=== PATIENT | female | born 1940 | race Caucasian/White ===

== ENCOUNTER 2016-07-02 01:10 | Inpatient (IN) | payer OTHER ==
[~2016-07-02] VITALS: Ht 165.1 cm; Wt 108.4 kg
[~2016-07-02 01:10] MED LIST: CYMBALTA30 M1 PO; MUCINEX600 M1 PO; SYMBICORT 16010.2 GM INH; SYNTHROID200 MCG PO; SYNTHROID25 MCG PO; XARELTO20 M2 PO
--- NOTE | 2016-07-02 14:14 | Admission Core Measures ---
Admission Meds I reviewed the following Meds: Current Medications Sig/Rigo Start time Last Medication Dose Stop Time Status Admin Acetaminophen 975 MG ONCE 07/02 NR (Tylenol) 07/02 2358 Budesonide/ 2 PUF BID 07/02 2199 UNVr Formoterol Fumarate (Symbicort) Cefazolin Sodium 2,000 MG ONCE 07/02 NR (Kefzol-Ancef Inj) 07/02 2358 Duloxetine HCl 30 MG DAILY 07/03 1000 UNVr (Cymbalta) Levothyroxine Sodium 0.025 MG DAILY 07/03 1000 UNVr (Synthroid) Levothyroxine Sodium 0.2 MG DAILY 07/03 1000 UNVr (Synthroid) Oxycodone HCl 10 MG ONCE 07/02 NR (Roxicodone) 07/02 2358 Acute Coronary Syndrome Inclusion Criteria ACS Diagnosis No Inpatient Core Measures LDL Reminder: If No, please order W/I first 24hr of stay Congestive Heart Failure Inclusion Criteria CHF Diagnosis No Cerebrovascular accident Inclusion Criteria CVA/TIA Diagnosis No Inpatient Core Measures Bedside Swallow Eval Reminder: If BSE failed, place ST order Antithrombotic Reminder: Order Antithrombotic Medication by end of day 2 Antithrombotic Reminder: Document Reason Antithrombotic Not ordered by end of day 2 AFIB/Flutter Reminder: If Present, add to problem list AFIB/Flutter Reminder: Order Anticoag Medication for pts with AFIB/Flutter Atherosclerosis Reminder: If Present, add to problem list LDL Reminder: If No, please order W/I first 24hr of stay PT Order Reminder: If No, please order Venous thromboembolism Inpatient Core Measures VTE Risk Factors: Age > 40, Surgery VTE Prophylaxis Ordered Inpt [facility] & Pharm No [facility] VTE prophylaxis d/t No contraindications No VTE Pharm Prophylaxis d/t No contraindications Inclusion Criteria - Per Current guidelines, there needs to be overlap - treatment for the first 5 days of Warfarin therapy. - Parenteral Anticoagulation (IV or SC) needs to be - given along with Warfarin therapy. VTE Diagnosis No VTE Type NONE VTE Confirmed by (Test) NONE Problem List As ranked by this Provider includes Assessment & Plan 1. Status post total hip replacement, left HOME MEDS Home Med List Budesonide/Formoterol Fumarate (Symbicort 160-4.5 Mcg Inhaler) (Unknown Strength ) HFA.AER.AD 2 PUFF INH BID PRN COPD (Reported) Duloxetine Hydrochloride (Cymbalta) 30 MG CAPSULE.DR 1 CAP PO DAILY NEUROPATHY (Reported) Levothyroxine Sodium (Synthroid) 200 MCG TABLET 1 TAB PO DAILY THYROID ( Reported) Levothyroxine Sodium (Synthroid) 25 MCG TABLET 1 TAB PO DAILY THYROID ( Reported) Rivaroxaban (Xarelto) 20 MG TABLET 1 TAB PO DAILY PE (Reported)
[2016-07-02] MEDS ORDERED: MS CONTIN15 M2 PO (14:17)
[2016-07-02] MEDS ORDERED: DILAUDID2 M1 PO (14:17)
[2016-07-02] MEDS ORDERED: MIRALAX17 G1 PO (14:17)
[2016-07-02] MEDS ORDERED: COLACE100 M1 PO (14:17)
--- NOTE | 2016-07-02 14:22 | Patient Discharge Instructions ---
Discharge Instructions General Discharge Information You were seen/treated for: joint pain You had these procedures: total hip replacement Watch for these problems: See pre printed sheet Other wound care: See pre printed sheet Diet Recommended Diet: Regular Activity Activity Self Limited: Yes Acute Coronary Syndrome Inclusion Criteria At DC or during hospital stay patient has or had the following: ACS DIAGNOSIS No Discharge Core Measures Meds if any: Prescribed or Continued at Discharge Meds if any: NOT Prescribed or Continued at Discharge Congestive Heart Failure Inclusion Criteria At DC or during hospital stay patient has or had the following: CHF DIAGNOSIS No Discharge Core Measures Meds if any: Prescribed or Continued at Discharge Meds if any: NOT Prescribed or Continued at Discharge Cerebrovascular accident Inclusion Criteria At DC or during hospital stay patient has or had the following: CVA/TIA Diagnosis No Discharge Core Measures Meds if any: Prescribed or Continued at Discharge Meds if any: NOT Prescribed or Continued at Discharge Venous thromboembolism Inclusion Criteria VTE Diagnosis No VTE Type NONE VTE Confirmed by (Test) NONE Discharge Core Measures - Per Current guidelines, there needs to be overlap - treatment for the first 5 days of Warfarin therapy. - If discharged on Warfarin prior to 5 days of - overlap therapy, the patient will need to be - assessed for post discharge needs including - *Post discharge parental anticoagulation - *Warfarin and/or parental anticoagulation education - *Follow up date to check INR post discharge At least 5 days overlap therapy as Inpatient No Meds if any: Prescribed or Continued at Discharge Note: Overlap Therapy is Warfarin and Anticoagulant Meds if any: NOT Prescribed or Continued at Discharge
--- NOTE | 2016-07-02 14:26 | Surg Short-stay <48hrs Dis Sum ---
Visit Information Visit Dates Admission Date: 07/02/16 Discharge Date: 07/04/16 Surgical Short Stay DC Summary Admission Diagnosis: OA, DJD Final Diagnosis: same, s/p L DEMETRIUS Procedure(s): L DEMETRIUS - see op report Summary/Significant Findings: Pt underwent L DEMETRIUS by DR Gee on 07/02. She tolerated the procedure and was brought to the PACU in stable condition. Over the course of her stay, she was able to void without difficulty, she was tolerating a regular diet, her pain was well controlled on oral pain medication and she was seen by PT and cleared for discharge home with services. Condition at Discharge: good Discharge Disposition: home health services Discharge instructions provided to patient/family: Yes Post discharge follow-up plan: Scheduled appoitnment with DR Gee - Pt is to call if needed to be seen earlier.
--- NOTE | 2016-07-02 16:39 | Operative Report ---
Operative/Inv Procedure Report Surgery Date: 07/02/16 Name of Procedure: Left total hip replacement Pre-Operative Diagnosis: Primary left hip DJD Post-Operative Diagnosis: Same Estimated Blood Loss: 350 Surgeon/Propulsion Generator Repairer: DEQUAN HATHAWAY,BETH Feldman Anesthesia: block Operative/Procedure Note Note: Description of Procedure: The patient was taken to the operating room and positively identified. After induction of spinal anesthesia and administration of appropriate pre-operative antibiotics, the patient was positioned supine on the operating room table and all bony prominences were well padded. After performing a surgical timeout, the left extremity was prepped and draped in the usual sterile fashion. A direct anterior approach was made to the left hip. The incision was carried sharply through superficial soft tissues to the level of the fascia. Meticulous hemostasis was maintained with Bovie electocautery. The fascia over the tensor fascia alva muscle was opened sharply and the interval between the TFL and the sartorius was entered bluntly taking care to stay lateral to the lateral femoral cutaneous nerve. Retractors were placed around the femoral neck and the pericapsular fat was identified. The ascending branches of the lateral femoral circumflex vessels were identified and carefully coagulated. The pericapsular fat and anterior capsule were then resected. A napkin ring osteotomy was performed and the femoral head was removed without difficulty. Attention was then turned to the acetabulum. After appropriate placement of retractors, the acetabulum was exposed. Soft tissue was cleaned from the acetabular margin and notch. Overhanging osteophytes were removed and the teardrop was exposed. The acetabulum was then sequentially reamed to accept a 50 mm Brandi Tritanium hemispherical solid back shell. This was impacted into place in the appropriate position and fitted with a 32 mm Trident X3 zero degree polyethylene insert. Attention was then turned to the femur. After performing the appropriate ligament releases, the proximal femur was exposed. It was then sequentially broached to accept a size 3 Brandi accolade 2 stem. This was trialed for leg length and stability. The trial component was removed and the final component was impacted into place. The trunnion was carefully cleaned and fit with a 32 mm, +4 Biolox delta ceramic femoral head. The hip was reduced and put through a full range of motion and found to be stable. The articular space was then irrigated with sterile saline. The periarticular soft tissues were infilitrated with Marcaine. The fascial layer was closed with interrupted #1 vicryl suture and the skin was re-approximated with interrupted 2 -0 vicryl. The skin was closed with a running 3-0 V-Lock suture. Steri-strips and a sterile dressing were applied. The patient was awakened and taken to the recovery room in satisfactory condition.
--- NOTE | 2016-07-02 18:34 | RADIOLOGY REPORT ---
EXAMINATION: XR HIP, LEFT CLINICAL INFORMATION: Status post left total hip replacement. COMPARISON: None TECHNIQUE: AP and crosstable lateral views of the left hip. FINDINGS: Prosthetic components of the left total hip arthroplasty are appropriately aligned. No periprosthetic fracture. Gas from recent surgery is present in the surrounding soft tissues. A drainage catheter overlies the lateral aspect of the left hip joint. IMPRESSION: Normal postoperative appearance of the left total hip prosthesis.
[2016-07-02 19:41] VITALS: BP 110/64
--- NOTE | 2016-07-02 20:00 | NUR ---
PT UPTO FLOOR AT 191. PT A/O X3. PAIN MILD AT THAT TIME. VSS. LCTA. ABD SOFT. PT WITH HEMOVAC TO L HIP W BLOODY OUTPUT. L HIP DSD C/D/I. NO DRAINAGE TO DRESSING. + CMS. CALL DYE USE INTRUCTED. WILL MONITOR
[2016-07-02 21:00] VITALS: BP 92/60
--- NOTE | 2016-07-02 22:09 | PN- Orthopedic ---
Subjective Subjective: s/p left ira denies cp, sob, no n+v has been ambulating sat on the toilet but could not urinate Objective Vital Signs and I&Os Vital Signs Date Time Temp Pulse Resp B/P Pulse O2 O2 Flow FiO2 Ox Delivery Rate 07/02 2099 97.8 68 20 92/60 94 Room Air 07/02 1940 97.4 63 16 110/64 94 Room Air Physical Exam: cv: rrr lungs: clear abd: +bs ext: drsg dry distal cms intact hemovac in plasce Assessment/Plan Assessment/Plan ortho stable plan straight cath prn start xarelto tomorrow for dvt prophylaxis for now mechanical only Core Measures/Miscellaneous Venous Thromboembolism VTE Risk Factors: Age > 40, Obesity, Surgery VTE Contraindications: No Contraindications VTE Prophylaxis Ordered Inpt: Mech & Pharm VTE Diagnosis: No VTE Type: NONE VTE Confirmed by (Test): NONE Beta Maria Elena Is Beta Maria Elena a Home Med? No Antibiotics Is Patient on Antibiotics? Yes If Yes: prophylaxis
[2016-07-03 00:59] VITALS: BP 110/66
[2016-07-03 03:00] VITALS: BP 108/60
[2016-07-03 06:36] VITALS: BP 106/58
--- NOTE | 2016-07-03 08:44 | PN- Orthopedic ---
Subjective Subjective: NAEO. Patient without new c/o. Pain controlled. Slept well. Tolerating PO intake without n/v. +flatus, no BM. Has not been OOB. Voiding spontaneously. Denies CP, SOB. Objective Vital Signs and I&Os Vital Signs Date Time Temp Pulse Resp B/P Pulse O2 O2 Flow FiO2 Ox Delivery Rate 07/03 0636 98.2 60 16 106/58 92 Room Air 07/03 0300 97.7 61 16 108/60 91 Room Air 07/03 0059 97.8 73 18 110/66 92 Room Air 07/02 2100 97.8 68 20 92/60 94 Room Air 07/02 1941 97.4 63 16 110/64 94 Room Air Intake & Output 07/03 1600 07/03 0800 07/03 0000 07/02 1600 07/02 0800 07/02 0000 Intake Total 1650 1725 Output Total 445 1150 Balance 1205 575 Intake, IV 1500 225 Intake, Oral 150 1500 Output, 95 350 Drainage Output, Urine 350 800 Patient 239 lb Weight Physical Exam: General: NAD, comfortable, A&Ox3 Chest: NRD, breathing comfortably on RA. Heart S1S2 normal. Abdomen: soft, nontender, nondistended. Ext: Left hip dressing clean dry and intact. Left hip Hemovac in place with small amount of sanguinous drainage. No calve swelling/TTP, neurovascularly intact bilateral lower extremities Current Medications: Current Medications Sig/Rigo Start time Last Medication Dose Route Stop Time Status Admin Acetaminophen 650 MG Q4P PRN 07/02 1830 AC PO Acetaminophen 975 MG ONCE 07/02 0000 DC PO 07/02 2359 Budesonide/ 2 PUF BID 07/02 2200 AC Formoterol Fumarate INH Cefazolin Sodium 2 GM Q8H 07/02 2245 DC 07/03 N/A 1 UNIT IV 07/03 0714 0631 Cefazolin Sodium 2 GM Q8H 07/02 2045 DC N/A 1 UNIT IV 07/03 0514 Cefazolin Sodium 2 GM SEE ADMIN CRITERIA 07/02 1830 DC N/A 1 UNIT IV 07/03 1859 Cefazolin Sodium 2,000 MG ONCE 07/02 0000 DC IV 07/02 2359 Dexamethasone 4 MG .STK-MED ONE 07/02 1401 DC IM 07/02 1402 Dextrose/Sodium 1,000 ML .[id number] 07/02 1830 DC 07/03 Chloride IV 0210 Diphenhydramine HCl 50 MG AT BEDTIME PRN 07/02 2215 AC 07/02 PO 2219 Diphenhydramine HCl 25 MG .STK-MED ONE 07/02 2209 DC PO 07/02 2210 Docusate Sodium 100 MG BID 07/02 2200 AC 07/02 PO 2218 Duloxetine HCl 30 MG DAILY 07/03 1000 AC PO Fentanyl Citrate 100 MCG .STK-MED ONE 07/02 1400 DC IM 07/02 1401 Hydromorphone HCl 2 MG Q4P PRN 07/02 1830 AC PO Hydromorphone HCl 4 MG Q4P PRN 07/02 1830 AC 07/03 PO 0048 Levothyroxine Sodium 0.025 MG DAILY 07/03 1000 AC PO Levothyroxine Sodium 0.2 MG DAILY 07/03 1000 AC PO Midazolam HCl 2 MG .STK-MED ONE 07/02 1401 DC IM 07/02 1402 Morphine Sulfate 2 MG Q3P PRN 07/02 1830 AC 07/03 IV 0215 Ondansetron HCl 4 MG Q6P PRN 07/02 1830 AC IV Oxycodone HCl 10 MG ONCE 07/02 0000 DC PO 07/02 2359 Polyethylene Glycol 17 GM DAILY 07/03 1000 AC PO Rivaroxaban 20 MG DAILY 07/03 2200 UNVr PO Rivaroxaban 20 MG DAILY 07/03 1000 DC PO Sodium Chloride 1,000 ML BOLUS ONE 07/03 0100 DC 07/03 IV 07/03 0159 0107 Tranexamic Acid 2,000 MG .STK-MED ONE 07/02 1400 DC IV 07/02 1401 Assessment/Plan Assessment/Plan 75yo F POD#1 s/p left total hip duraplasty. AVSS, patient stable. - Pain control - DC Hemovac - Bowel regimen - Start Xarelto and evening - I/O's - Bed and ambulate with PT, weightbearing as tolerated - When necessary Zofran - DC IV fluid - Alps - Follow-up a.m. labs - Will discuss with attending Core Measures/Miscellaneous Venous Thromboembolism VTE Risk Factors: Age > 40, Obesity, Surgery VTE Contraindications: No Contraindications VTE Prophylaxis Ordered Inpt: Mech & Pharm VTE Diagnosis: No VTE Type: NONE VTE Confirmed by (Test): NONE Beta Maria Elena Is Beta Maria Elena a Home Med? No Antibiotics Is Patient on Antibiotics? No If Yes: prophylaxis
[2016-07-03 09:21] LABS: ABSOLUTE BASOPHIL COUNT 0 /CUMM (0.0-0.2); ABSOLUTE EOSINOPHIL COUNT 0 /CUMM (0.0-0.7); ABSOLUTE GRANULOCYTE CT 9.5 /CUMM (1.4-6.5); ABSOLUTE LYMPH COUNT 1.5 /CUMM (1.2-3.4); ABSOLUTE MONOCYTE COUNT 0.8 /CUMM (0.10-0.60); BASOPHIL % 0.4 % (0.0-2.0); EOSINOPHIL % 0.1 % (0-5); GRANULOCYTE % 80.1 % (42.2-75.2); HEMATOCRIT 30.7 % (37-47); MEAN CORPUSCULAR HGB 21.4 PG (27.0-31.0); MEAN CORPUSCULAR HGB CONC 31.4 G/DL (33.0-37.0); MEAN CORPUSCULAR VOLUME 68.2 FL (81.0-99.0); MEAN PLATELET VOLUME 9.1 FL (7.4-10.4); PLATELET COUNT 202 /CUMM (130-400); RBC DISTRIBUTION WIDTH 15.5 % (11.5-14.5); RED BLOOD CELL CT 4.49 /CUMM (4.20-5.40); WHITE BLOOD CELL COUNT 11.8 /CUMM (4.8-10.8)
--- NOTE | 2016-07-03 10:24 | NUR ---
PATIENT CALLED RN INTO ROOM, PATIENT COMPLAINS OF SATURATION OF DRESSING AND GOWN, SURGICAL PA JAMILA CALLED, STATES TO REINFORCE AT THIS TIME, AND SOMEONE WILL BE UP TO SEE HER. WILL MONITOR APPROPRIATE
[2016-07-03 14:06] VITALS: BP 112/80
[2016-07-03 22:29] VITALS: BP 118/74
[2016-07-04 06:43] VITALS: BP 102/40
--- NOTE | 2016-07-04 07:18 | PN- Orthopedic ---
Subjective Subjective: pod#2 s/p left ira no major cmplaints this am low grade temp this am denies cp, sob, no n+v with diet Objective Vital Signs and I&Os Vital Signs Date Time Temp Pulse Resp B/P Pulse O2 O2 Flow FiO2 Ox Delivery Rate 07/04 0643 100.6 96 18 102/40 93 Room Air 07/03 2229 97.8 78 18 118/74 93 Room Air 07/03 1406 97.6 69 20 112/80 92 Room Air 07/03 1033 Room Air Intake & Output 07/04 0800 07/04 0000 07/03 1600 07/03 0800 07/03 0000 07/02 1600 Intake Total 5811 077 0264 1725 Output Total 1200 134 089 1663 Balance 731 147 3093 575 Intake, IV 10 75 1500 225 Intake, Oral 1500 092 537 9339 Number 0 Bowel Movements Output, 95 350 Drainage Output, Urine 1200 775 350 800 Patient 239 lb Weight Physical Exam: cv: rrr lungs: clear abd: +bs, non tender ext: drsg changed, wound c/d/i no calf tenderness bilat distal cms intact Assessment/Plan Assessment/Plan ortho stable plan cont oob with pt/stairs encourage IS planning home d/c today Core Measures/Miscellaneous Venous Thromboembolism VTE Risk Factors: Age > 40, Obesity, Surgery VTE Contraindications: No Contraindications VTE Prophylaxis Ordered Inpt: Mech & Pharm VTE Diagnosis: No VTE Type: NONE VTE Confirmed by (Test): NONE Beta Maria Elena Is Beta Maria Elena a Home Med? No Antibiotics Is Patient on Antibiotics? No If Yes: prophylaxis
--- NOTE | 2016-07-04 08:37 | NUR ---
Physical Thearpy: Attempted to see patient but she refused physical therapy 2/2 fatigue and pain. Despite persistent coaxing and education on the importance of getting up she did not want to get out of bed. Will attempt to see patient again later as appropriate.
[2016-09-27] MEDS ORDERED: AMBIEN5 M1 PO (10:58)
== END 2016-07-04 13:32 | disposition home health service (06) | DRG 470 ==
LOC: ENRESERVDT → ENRESERVTM → SDA 01:10 → 2NA 01:10
PROVIDERS: Physician Assistant Surgical; ADMIT Orthopaedic Surgery
PROC: 0SRB04A Replacement of Left Hip Joint with Ceramic on Polyethylene Synthetic Substitute, Uncemented, Open Approach (ICD-10-PCS; principal; 2016-07-02)
DX: M16.12 Unilateral primary osteoarthritis, left hip (principal); J43.9 Emphysema, unspecified; Z85.3 Personal history of malignant neoplasm of breast; Z86.711 Personal history of pulmonary embolism; Z79.01 Long term (current) use of anticoagulants
CPT/HCPCS: 2NASP; 73502-LT; 82436; 88304; 97116-GO; 97161-GP; 97530-GO; J0690; J0735; J1100; J2405; J3490; J7042

== ENCOUNTER 2016-10-01 04:17 | Inpatient (IN) | payer OTHER ==
[~2016-10-01] VITALS: Ht 167.6 cm; Wt 104.3 kg
[~2016-10-01 04:17] MED LIST changes: +AMBIEN5 M1 PO; +COLACE100 M1 PO; +DILAUDID2 M1 PO; +MIRALAX17 G1 PO; +MS CONTIN15 M2 PO
[2016-10-01] MEDS ORDERED: COLACE100 M1 PO (12:20)
--- NOTE | 2016-10-01 12:20 | Admission Core Measures ---
Admission Meds I reviewed the following Meds: Current Medications Sig/Rigo Start time Last Medication Dose Stop Time Status Admin Acetaminophen 975 MG ONCE 10/01 0000 NR (Tylenol) 10/01 2358 Cefazolin Sodium 2,000 MG ONCE 10/01 NR (Kefzol-Ancef Inj) 10/01 2358 Levothyroxine Sodium 0.025 MG DAILY AC 10/01 1000 AC (Synthroid) Levothyroxine Sodium 0.2 MG DAILY AC 10/01 1000 AC (Synthroid) Oxycodone HCl 10 MG ONCE 10/01 0000 NR (Roxicodone) 10/01 2358 Zolpidem Tartrate 5 MG QPM PRN 10/01 2200 AC (Ambien) Acute Coronary Syndrome Inclusion Criteria ACS Diagnosis No Inpatient Core Measures LDL Reminder: If No, please order W/I first 24hr of stay Congestive Heart Failure Inclusion Criteria CHF Diagnosis No Cerebrovascular accident Inclusion Criteria CVA/TIA Diagnosis No Inpatient Core Measures Bedside Swallow Eval Reminder: If BSE failed, place ST order Antithrombotic Reminder: Order Antithrombotic Medication by end of day 2 Antithrombotic Reminder: Document Reason Antithrombotic Not ordered by end of day 2 AFIB/Flutter Reminder: If Present, add to problem list AFIB/Flutter Reminder: Order Anticoag Medication for pts with AFIB/Flutter Atherosclerosis Reminder: If Present, add to problem list LDL Reminder: If No, please order W/I first 24hr of stay PT Order Reminder: If No, please order Venous thromboembolism Inpatient Core Measures VTE Risk Factors: Age > 40, Surgery No [facility] VTE prophylaxis d/t No contraindications No VTE Pharm Prophylaxis d/t No contraindications Inclusion Criteria - Per Current guidelines, there needs to be overlap - treatment for the first 5 days of Warfarin therapy. - Parenteral Anticoagulation (IV or SC) needs to be - given along with Warfarin therapy. VTE Diagnosis No VTE Type NONE VTE Confirmed by (Test) NONE Problem List As ranked by this Provider includes Assessment & Plan 1. Unilateral primary osteoarthritis, left knee HOME MEDS Home Med List Levothyroxine Sodium (Synthroid) 200 MCG TABLET 1 TAB PO DAILY THYROID ( Reported) Levothyroxine Sodium (Synthroid) 25 MCG TABLET 1 TAB PO DAILY THYROID ( Reported) Rivaroxaban (Xarelto) 20 MG TABLET 1 TAB PO DAILY PE (Reported) Zolpidem Tartrate (Ambien) 5 MG TABLET 1 TAB PO QPMP INSOMNIA (Reported)
[2016-10-01] MEDS ORDERED: DILAUDID2 M1 PO (12:21)
[2016-10-01] MEDS ORDERED: ELIQUIS2.5 M1 PO (12:21)
[2016-10-01] MEDS ORDERED: PRILOSEC OTC20 M1 PO (12:21)
[2016-10-01] MEDS ORDERED: MIRALAX17 G1 PO (12:21)
--- NOTE | 2016-10-01 12:28 | Patient Discharge Instructions ---
Discharge Instructions General Discharge Information You were seen/treated for: LEFT KNEE PAIN You had these procedures: LEFT TOTAL KNEE REPLACEMENT Watch for these problems: Increasing pain despite the use of pain medication. Increasing redness, warmth, or swelling. Drainage of any type from incision. Inability to bear weight on left leg. Do not soak the wound: Yes No bath, but you may shower: Yes Other wound care: Keep wound clean and dry. Daily dry dressing changes. No ointment of any type on or near incision, no exceptions. Special Instructions: Eliquis for blood thinning, take twice daily. Please discuss with Dr. Gee or Primary Care Physician prior to stopping. Plan is to continue the Eliquis until 4weeks post op and then switch back to her xeralto upon the next scheduled dose. Colace and miralax are being given to help prevent constipation. Please take as directed. Constipation is a common side effect of pain medications. Diet Continue normal diet: Yes Recommended Diet: Regular Additional DIET Information: Advance diet as tolerated Activity Full Activity/No Limits: No Activity Self Limited: Yes Pounds, do NOT lift more than: 10 Additional ACTIVITY Info: Weight bear as tolerated Acute Coronary Syndrome Inclusion Criteria At DC or during hospital stay patient has or had the following: ACS DIAGNOSIS No Discharge Core Measures Meds if any: Prescribed or Continued at Discharge Meds if any: NOT Prescribed or Continued at Discharge Congestive Heart Failure Inclusion Criteria At DC or during hospital stay patient has or had the following: CHF DIAGNOSIS No Discharge Core Measures Meds if any: Prescribed or Continued at Discharge Meds if any: NOT Prescribed or Continued at Discharge Cerebrovascular accident Inclusion Criteria At DC or during hospital stay patient has or had the following: CVA/TIA Diagnosis No Discharge Core Measures Meds if any: Prescribed or Continued at Discharge Meds if any: NOT Prescribed or Continued at Discharge Venous thromboembolism Inclusion Criteria VTE Diagnosis No VTE Type NONE VTE Confirmed by (Test) NONE Discharge Core Measures - Per Current guidelines, there needs to be overlap - treatment for the first 5 days of Warfarin therapy. - If discharged on Warfarin prior to 5 days of - overlap therapy, the patient will need to be - assessed for post discharge needs including - *Post discharge parental anticoagulation - *Warfarin and/or parental anticoagulation education - *Follow up date to check INR post discharge At least 5 days overlap therapy as Inpatient No Meds if any: Prescribed or Continued at Discharge Note: Overlap Therapy is Warfarin and Anticoagulant Meds if any: NOT Prescribed or Continued at Discharge
--- NOTE | 2016-10-01 12:32 | Surgical Discharge Summary ---
Visit Information Visit Dates Admission Date: 10/01/16 Discharge Date: 10/04/16 History of Present Illness Chief Complaint: Left knee pain related to osteoarthritis Medical History Neurological: NONE EENT: NONE Cardiovascular: NONE Respiratory: emphysema Gastrointestinal: NONE Hepatic: NONE Renal: NONE Musculoskeletal: osteoarthritis Psychiatric: depression, insomnia Endocrine: hypothyroidism Blood Disorders: PE Cancer(s): breast cancer, thyroid cancer CULINARY SPECIALIST/Reproductive: NONE History of MRSA: No History of VRE: No History of CDIFF: No Influenza Vaccine: 05/07/16 Surgical History Pertinent Surgical History: hip replacement, knee replacement, lumpectomy Psychosocial History Who Do You Live With? Spouse Services at Home: None Review of Systems: See H&P Hospital Course Course Attending Physician: BETH BAIRES MD Primary Care Physician: HERNANDEZ BHAGAT MD Hospital Course: Rossy was admitted to the hospital on 10/01/2016 for an elective left total knee replacement. She tolerated the procedure well and was transferred to a general surgical floor. Her diet was advanced and tolerated. Her pain was controlled with oral pain medication. Her vital signs remained stable and within normal limits. Her neurovascular status remained intact. She was evaluated and treated by physical therapy. She was deemed appropriate for discharge to residential for cont PT, needs work on ambulation and knee ROM. Complications: none Allergies: Coded Allergies: No Known Allergies (06/28/16) Disposition Summary Disposition Principal Diagnosis: Left knee unilateral primary osteoarthritis Additional Diagnosis: none Discharge Disposition: SNF Discharge Instructions General Discharge Information Code Status: Full Code Patient's Diet: Regular, advance as tolerated Patient's Activity: WBAT left knee Follow-Up Instructions/Appts: work on knee ROM Follow up with Dr. Baires in 6 weeks from date of surgery. Medications at Discharge Discharge Medications: Stop taking the following medications: Rivaroxaban (Xarelto) 20 MG TABLET ORAL DAILY Continue taking these medications: Levothyroxine Sodium (Synthroid) 200 MCG TABLET 1 Tablet ORAL DAILY Comments: DOCUMENTED "225MCG DAILY" Last Taken: 10/04/16 Time: 6:00 AM Levothyroxine Sodium (Synthroid) 25 MCG TABLET 1 Tablet ORAL DAILY Comments: PART OF A "225MCG DAILY" DOSE Last Taken: 10/04/16 Time: 6:00 AM Zolpidem Tartrate (Ambien) 5 MG TABLET 1 Tablet ORAL Every night as needed Instructions: MAY REPEAT DOSE Comments: Last Taken: 10/01/16 Time: 10:00 PM Start taking the following new medications: Methocarbamol (Robaxin) 500 MG TABLET 1 Tablet ORAL THREE TIMES A DAY NEEDED as needed for SPASMS Qty = 1 No Refills Comments: Last Taken: 10/03/26 Time: 9:00 PM Morphine Sulfate (Ms Contin) 100 MG TABLET.ER 1 Milligram ORAL TWICE DAILY Qty = 6 No Refills Instructions: STOP AFTER THREE DAYS OR WHEN PAIN IS CONTROLLED WITH DILAUDID PO Comments: Last Taken: 10/04/16 Time: 9:00 AM Docusate Sodium (Colace) 100 MG CAPSULE 1 Capsule ORAL TWICE DAILY Qty = 14 No Refills Instructions: DISCONTINUE USE IF YOU DEVELOP LOOSE STOOL OR DIARRHEA Comments: Last Taken: 10/04/16 Time: 9:00 AM Hydromorphone HCl (Dilaudid) 2 MG TABLET 1-2 Tablet ORAL EVERY 4-6 HOURS as needed for PAIN Qty = 36 No Refills Comments: Last Taken: 10/04/16 Time: 9:00 AM Polyethylene Glycol 3350 (Miralax) 17 GRAM POWD.PACK 1 Packet ORAL DAILY Qty = 7 No Refills Instructions: dissolve in water, DISCONTINUE USE IF YOU DEVELOP LOOSE STOOL OR DIARRHEA Comments: NOT GIVEN IN HOSPITAL Omeprazole Magnesium (Prilosec Otc) 20 MG TABLET.DR 1 Tablet ORAL DAILY Qty = 30 No Refills Comments: Last Taken: 10/04/16 Time: 6:00 AM Apixaban (Eliquis) 2.5 MG TABLET 1 Tablet ORAL TWICE DAILY Qty = 60 No Refills Comments: Last Taken: 10/04/16 Time: 9:00 AM
[2016-10-01 15:15] VITALS: BP 110/68
--- NOTE | 2016-10-01 15:23 | PN- Orthopedic ---
Subjective Subjective: The patient was seen this afternoon postoperatively. She reports her pain is under adequate control his other complaints at the current time. She denies any chest pain, palpitations, or difficulty breathing. Objective Vital Signs and I&Os Vital signs: Blood pressure 120/60, pulse 65, temperature 98.6, O2 saturations 90% on room air. I's and O's: 1700 ML's in of lactated Ringer's/140 ML's out of urine via Song catheter Physical Exam: Gen.: Alert and in no obvious distress Skin: Warm and dry Cardiac: S1-S2 regular Pulmonary: Bilateral breath sounds are equal and decreased at bases Extremities: Bilateral lower extremities are warm without calf tenderness or significant edema. Gross motor and sensory are intact. Left knee surgical dressing is clean, dry, and intact. There is no On-Q pain pump in place. Assessment/Plan Assessment/Plan Assessment: 76-year-old female status post left total hip arthroplasty. Postoperative the patient is progressing as expected and her pain is under adequate control. Plan: Out of bed with physical therapy patient is weightbearing as tolerated Continue IV fluids and Song catheter until the morning Advance diet as tolerated 2 doses of postoperative prophylactic antibiotics Continue current pain management Start Eliquis first dose tonight Strict I's and O's Incentive spirometry Resume home medications Core Measures/Miscellaneous Song Catheter Date In: 10/01/16 Still Needed? Yes Venous Thromboembolism VTE Risk Factors: Age > 40, Previous VTE VTE Contraindications: No Contraindications VTE Diagnosis: No VTE Type: NONE VTE Confirmed by (Test): NONE Beta Maria Elena Is Beta Maria Elena a Home Med? No Antibiotics Is Patient on Antibiotics? Yes If Yes: prophylaxis
--- NOTE | 2016-10-01 15:50 | Operative Report ---
Operative/Inv Procedure Report Surgery Date: 10/01/16 Name of Procedure: Left total knee replacement Pre-Operative Diagnosis: Primary left knee DJD Post-Operative Diagnosis: Same Estimated Blood Loss: 50ml to 100ml Surgeon/Procurement Services Manager: DEQUAN HATHAWAY,BETH Feldman Anesthesia: block Operative/Procedure Note Note: Description of Procedure: The patient was taken to the operating room and positively identified. After induction of spinal anesthesia and administration of appropriate pre-operative antibiotics, the patient was positioned supine on the operating room table and all bony prominences were well padded. A well-padded pneumatic tourniquet was placed on the left upper thigh. After performing a surgical timeout, the left lower extremity was prepped and draped in the usual sterile fashion. After exsanguination with Esmarch the tourniquet was inflated to 250mm of mercury. A standard medial parapatellar approach was made to the knee. This was carried down through skin and subcutaneous tissue to the level of the fascia. Meticulous hemostasis was maintained with Bovie electrocautery. The extensor mechanism and patellar retinaculum were opened sharply and the patella was everted. The infrapatellar fat was resected in order to improve exposure. Osteophytes were trimmed from the patella and femoral condyles and the patella was re-everted and tucked laterally. A medial release was performed and the cruciate ligaments were resected. The tibia was then subluxed anteriorly. Utilizing the appropriate extra-medullary guide, the proximal tibia was trimmed perpendicular to the long axis of the tibial shaft. Attention was then turned to the femur. After opening the medullary canal, the distal femoral cut was made in 6 degrees of valgus utilizing the appropriate intra-medullary guide. The extension gap was checked and found to be appropriate. The femur was then sized and the remainder of the femoral cuts were made with a size 3 4-in-1 femoral cutting guide. The flexion gap was checked and found to be symmetric and appropriate. The knee was then trialed with a size 3 femoral component, a size 3 tibial component and a size 9 mm polyethylene insert. The patella was trimmed to accept an A 32 patella. This yielded excellent range of motion, stability and patellar tracking. All trial components were removed and the knee was copiously irrigated with sterile saline. All components were cemented into place with Brandi Simplex cement. All the components were of the Brandi Triathlon knee system of the above stated sizes. The knee was again irrigated after cementation. The extensor mechanism and patellar retinaculum were repaired using interrupted #1 vicryl suture. The skin was re-approximated with 2-0 vicryl and closed with cetor. A sterile dressing was applied, the tourniquet was deflated, the patient was awakened and taken to the recovery room in satisfactory condition.
[2016-10-01 17:19] VITALS: BP 108/58
[2016-10-01 21:54] VITALS: BP 114/53
[2016-10-02 01:11] VITALS: BP 112/60
[2016-10-02 04:56] VITALS: BP 120/60
--- NOTE | 2016-10-02 07:13 | PN- Orthopedic ---
Subjective Subjective: The Patient was seen this morning postoperatively day #1. She reports her pain is under adequate control and has no other complaints at the current time. She denies any chest pain or difficulty breathing but complaints of some minor back pain which she experiences all the time. Objective Vital Signs and I&Os Vital Signs Date Time Temp Pulse Resp B/P B/P Pulse O2 O2 Flow FiO2 Mean Ox Delivery Rate 10/02 0456 98.0 60 20 120/60 98 Room Air 10/02 0111 98.2 61 20 112/60 95 Room Air 10/01 2154 98.3 72 20 114/53 95 Room Air 10/01 1719 97.7 69 18 108/58 96 Room Air 10/01 1515 97.9 66 18 110/68 94 Room Air Room Air Intake & Output 10/02 0800 10/02 0000 10/01 1600 10/01 0800 10/01 0000 09/30 1600 Intake Total 1000 Output Total 1400 1900 Balance -1400 -900 Intake, Oral 1000 Output, Urine 1400 1900 Patient 230 lb Weight Physical Exam: Gen.: Alert and in no obvious distress Skin: Warm and dry Extremities: Bilateral lower extremities are warm without calf tenderness or significant edema. Gross motor and sensory are intact. Left lower extremity surgical dressing is clean, dry, and intact. Assessment/Plan Assessment/Plan Assessment: 76-year-old obese female status post left total knee arthroplasty postoperative day #1. The patient is progressing as expected and her pain is under adequate control. Plan: Hep-Lock IV fluids DC Song catheter Out of bed with physical therapy GI and DVT prophylaxis Follow-up morning laboratory studies First surgical dressing change tomorrow Core Measures/Miscellaneous Song Catheter Date In: 10/01/16 Venous Thromboembolism VTE Risk Factors: Age > 40, Previous VTE VTE Contraindications: No Contraindications VTE Diagnosis: No VTE Type: NONE VTE Confirmed by (Test): NONE Beta Maria Elena Is Beta Maria Elena a Home Med? No Antibiotics Is Patient on Antibiotics? No
[2016-10-02 07:48] LABS: ABSOLUTE BASOPHIL COUNT 0 /CUMM (0.0-0.2); ABSOLUTE EOSINOPHIL COUNT 0 /CUMM (0.0-0.7); ABSOLUTE LYMPH COUNT 0.8 /CUMM (1.2-3.4); ABSOLUTE MONOCYTE COUNT 0.6 /CUMM (0.10-0.60); BASOPHIL % 0.2 % (0.0-2.0); EOSINOPHIL % 0 % (0-5); GRANULOCYTE % 86.6 % (42.2-75.2); HEMATOCRIT 31.9 % (37-47); MEAN CORPUSCULAR HGB CONC 31.6 G/DL (33.0-37.0); MEAN CORPUSCULAR VOLUME 66.4 FL (81.0-99.0); MEAN PLATELET VOLUME 8.8 FL (7.4-10.4); PLATELET COUNT 188 /CUMM (130-400); RBC DISTRIBUTION WIDTH 16.1 % (11.5-14.5); RED BLOOD CELL CT 4.79 /CUMM (4.20-5.40); WHITE BLOOD CELL COUNT 10.4 /CUMM (4.8-10.8)
[2016-10-02 14:43] VITALS: BP 118/60
--- NOTE | 2016-10-02 19:12 | NUR ---
NSG NOTE: PATIENT REFUSING IV ACCESS; SURGICAL PA AWARE
[2016-10-02 22:03] VITALS: BP 124/56
[2016-10-03 00:21] VITALS: BP 124/58
[2016-10-03 06:53] VITALS: BP 128/68
--- NOTE | 2016-10-03 07:03 | PN- Orthopedic ---
Subjective Subjective: POD#2 S/P LEFT TKA PAIN ISSUES LAST PM RESPONDING TO MS CONTIN/ROBAXIN/TORADOL COMBINATION COMFORTABLE NOW DENIES CP, SOB, NO N+V WITH DIET Objective Vital Signs and I&Os Vital Signs Date Time Temp Pulse Resp B/P B/P Pulse O2 O2 Flow FiO2 Mean Ox Delivery Rate 10/03 0653 98.7 82 22 128/68 93 Room Air 10/03 0021 99.5 81 18 124/58 94 Room Air 10/02 2203 99.2 82 22 124/56 94 Room Air 10/02 1618 Room Air Room Air 10/02 1443 97.9 78 20 118/60 96 Room Air Intake & Output 10/03 0800 10/03 0000 10/02 1600 10/02 0800 10/02 0000 10/01 1600 Intake Total 200 2275 600 1000 Output Total 850 1400 1900 Balance 200 1425 -800 -900 Intake, IV 75 600 Intake, Oral 200 2200 1000 Number 0 Bowel Movements Output, Urine 850 1400 1900 Patient 230 lb Weight Physical Exam: CV: RRR LUNGS: CLEAR ABD: SOFT, +BS EXT: DRSG CHANGED, WOUND C/D/I NO CALF TENDERNESS BILAT DISTAL CMS INTACT Assessment/Plan Assessment/Plan ORTHO STABLE PLAN BOWEL REGIME TITRATE PAIN MEDS CONT OOB WITH PT/STAIRS SNF TOMORROW Core Measures/Miscellaneous Song Catheter Date In: 10/01/16 Venous Thromboembolism VTE Risk Factors: Age > 40, Previous VTE VTE Contraindications: No Contraindications VTE Diagnosis: No VTE Type: NONE VTE Confirmed by (Test): NONE Beta Maria Elena Is Beta Maria Elena a Home Med? No Antibiotics Is Patient on Antibiotics? No
--- NOTE | 2016-10-03 13:24 | NUR ---
PHYSICAL THERAPY- ATTEMPTED TO SEE PT THIS PM; PT VERY KINDLY REFUSING P.T. AT THIS TIME. EXTREMELY FATIGUED AND CLOSING EYES WHILE CONVERSING W/ THERAPIST. REQUESTS THAT P.T. RETURN AFTER SHE RESTS. WILL FOLLOW.
[2016-10-03 15:00] VITALS: BP 124/64
[2016-10-03 22:30] VITALS: BP 126/72
[2016-10-04 06:26] VITALS: BP 120/70
[2016-10-04] MEDS ORDERED: ROBAXIN500 M1 PO (09:24)
[2016-10-04] MEDS ORDERED: MS CONTIN100 MG PO (09:27)
--- NOTE | 2016-10-04 11:04 | PN- Orthopedic ---
Subjective Subjective: Patient is comfortable, pain regimen is adequate. Denies chest pain shortness of breath abdominal pain nausea vomiting fever or flulike illness Objective Vital Signs and I&Os Vital Signs Date Time Temp Pulse Resp B/P B/P Pulse O2 O2 Flow FiO2 Mean Ox Delivery Rate 10/04 0626 98.0 80 18 120/70 96 Room Air 10/03 2230 97.8 80 24 126/72 96 Room Air 10/03 1500 98.7 86 18 124/64 94 Room Air Room Air Intake & Output 10/04 1600 10/04 0800 10/04 0000 10/03 1600 10/03 0810/03 0000 Intake Total 240 1400 1200 200 200 Output Total 2000 850 300 Balance 240 -600 350 -100 200 Intake, Oral 240 1400 1200 200 200 Number 1 2 Bowel Movements Output, Urine 1999 850 300 Physical Exam: Well-developed well-nourished no apparent distress. HEENT: Atraumatic, extraocular motion intact Neck: Supple, no lymphadenopathy Respiratory: No respiratory distress Extremities: No edema LEFT lower extremity dressing in place, Incision line is clean dry and intact with minimal bloody drainage. No signs of infection. Moderate joint effusion Range of motion is 0-30. Neurovascularly intact distally Bilateral calves are supple, nontender. Neuro: Alert and oriented x3 Psych: Mood affect normal, normal memory normal judgment. Skin: Warm and dry, no rash on exposed skin Assessment/Plan Assessment/Plan Postop day #3 status post left total knee arthroplasty -Orthopedically patient is stable for discharge to short-term rehabilitation today -Continue ELIQUIS for DVT prophylaxsis for the next 4 weeks and then may switch back to her usual anticoagulation -Continue pain regimen -Follow up in 6 weeks as outpatient Core Measures/Miscellaneous Song Catheter Date In: 10/01/16 Venous Thromboembolism VTE Risk Factors: Age > 40, Previous VTE VTE Contraindications: No Contraindications VTE Diagnosis: No VTE Type: NONE VTE Confirmed by (Test): NONE Beta Maria Elena Is Beta Maria Elena a Home Med? No Antibiotics Is Patient on Antibiotics? No
[2016-10-04 13:04] VITALS: BP 120/70
== END 2016-10-04 13:55 | DRG 470 ==
LOC: SDA 04:17 → 2NB 04:17 → ENRESERV 12:41 → 2NB 15:10 → ENPENDDIS 10-04 13:50 → 2NB 10-04 13:55
PROVIDERS: Nurse Practitioner; ADMIT Orthopaedic Surgery
PROC: 0SRD0J9 Replacement of Left Knee Joint with Synthetic Substitute, Cemented, Open Approach (ICD-10-PCS; principal; 2016-10-01)
DX: M17.12 Unilateral primary osteoarthritis, left knee (principal); Z85.3 Personal history of malignant neoplasm of breast; Z85.850 Personal history of malignant neoplasm of thyroid
CPT/HCPCS: 2NBSP; 82436; 88305; 97110-GO; 97116-GO; 97161-GP; 97530-GO; C1713; J0131; J0690; J1885; J2550; J2795; J7042